=== PATIENT | male | born 1945 | race Caucasian/White ===

== ENCOUNTER 2017-04-01 12:44 | Inpatient (IN) | payer MEDICARE ==
[2017-04-01] VITALS (7 sets, daily range): BP systolic 199–244; BP diastolic 93–113; PULSE 68–84; RESP 14–20; TEMP 98–98.1; O2SAT 95–98
[~2017-04-01] VITALS: Ht 170.2 cm; Wt 80.0 kg
[~2017-04-01 12:44] MED LIST: IOHEXOL 350 MG/ML 10 ML VIAL (for RAD DIAG) IVCONTRAST ONE
[2017-04-01] MEDS ORDERED: MULTTAB67 PO (12:55)
[2017-04-01] MEDS ORDERED: SODIUM CHLORIDE 0.9% FLUSH 10 ML FLUSH IVF PRN (13:00)
[2017-04-01 13:30] LABS: AUTOMATED NEUTROPHIL # 2.8 TH/MM3 (1.8-7.7); BASOPHIL % 0.6 % (0.0-2.0); EOSINOPHIL # 0.1 TH/MM3 (0-0.4); EOSINOPHIL % 2.7 % (0.0-4.0); HEMATOCRIT 36.9 % (39.0-51.0); HEMO FLAGS DIFF FINAL; LYMPH % 36.4 % (9.0-44.0); MEAN CELL VOLUME 90.3 FL (80.0-100.0); MEAN CORPUSCULAR HGB CONC 35.4 % (32.0-36.0); MONO % 7.8 % (0.0-8.0); NEUT % 52.5 % (16.0-70.0); PLATELET COUNT 188 TH/MM3 (150-450); RED BLOOD COUNT 4.09 MIL/MM3 (4.50-5.90); RED CELL DISTRIBUTION WIDTH 12.4 % (11.6-17.2); WHITE BLOOD COUNT 5.4 TH/MM3 (4.0-11.0)
--- NOTE | 2017-04-01 13:33 | RADRPT ---
EXAM DATE/TIME: 04/01/2017 13:13 [facility] COMPARISON: No previous studies available for comparison. INDICATIONS : Altered mental status with confusion for two days. RADIATION DOSE: 56.35 CTDIvol (mGy) MEDICAL HISTORY : None SURGICAL HISTORY : None. ENCOUNTER: Initial ACUITY: 2 days PAIN SCALE: 8/10 LOCATION: Bilateral cranial TECHNIQUE: Multiple contiguous axial images were obtained of the head. Using automated exposure control and adj ustment of the mA and/or kV according to patient size, radiation dose was kept as low as reasonably a chievable to obtain optimal diagnostic quality images. DICOM format image data is available electro nically for review and comparison. FINDINGS: CEREBRUM: Bilateral hypodensities within the internal capsule and caudate nucleus suspicious for small lacunar infarcts. Left thalamic hypodensity likely old lacunar infarct The ventricles are mildly prominent fo r age. No evidence of midline shift, mass lesion, hemorrhage or acute infarction. No extra-axial fl uid collections are seen. POSTERIOR FOSSA: The cerebellum and brainstem are intact. The 4th ventricle is midline. The cerebellopontine angle i s unremarkable. EXTRACRANIAL: The visualized portion of the orbits is intact. SKULL: The calvaria is intact. No evidence of skull fracture. CONCLUSION: Bilateral hypodensities within the basal ganglia and internal capsule suspicious for infarcts. Defini te new edema or hemorrhage seen. Wilfrido Hernandez MD on April 01, 2017 at 13:31 Board Certified Radiologist. This report was verified electronically.
[2017-04-01 13:39] LABS: APTT (PATIENT) 25.4 SEC (24.3-30.1); PROTHROMBIN TIME - PATIENT 10.8 SEC (9.8-11.6)
[2017-04-01 13:49] LABS: ALT (GPT) 23 U/L (12-78); ANION GAP 8 MEQ/L (5-15); AST (GOT) 18 U/L (15-37); BLOOD UREA NITROGEN 15 MG/DL (7-18); CHLORIDE 101 MEQ/L (98-107); GLOMERULAR FILTRATION RATE 72 ML/MIN (>89); POTASSIUM 3.5 MEQ/L (3.5-5.1); SODIUM (NA) 136 MEQ/L (136-145)
[2017-04-01 13:53] LABS: ALKALINE PHOSPHATASE 100 U/L (45-117); CREATINE KINASE 107 U/L (39-308); TOTAL BILIRUBIN ADULT 1.2 MG/DL (0.2-1.0)
--- NOTE | 2017-04-01 14:02 | RADRPT ---
EXAM DATE/TIME: 04/01/2017 13:58 [facility] COMPARISON: No previous studies available for comparison. INDICATIONS : Lightheaded and dizzy. MEDICAL HISTORY : None. SURGICAL HISTORY : None. ENCOUNTER: Initial ACUITY: 1 day PAIN SCORE: 0/10 LOCATION: Bilateral chest FINDINGS: A single view of the chest demonstrates the lungs to be symmetrically aerated without evidence of mas s, infiltrate or effusion. The cardiomediastinal contours are unremarkable. Osseous structures are intact. CONCLUSION: Normal examination. Wilfrido Hernandez MD on April 01, 2017 at 14:00 Board Certified Radiologist. This report was verified electronically.
[2017-04-01] MEDS ORDERED: GLUCAGON 1 MG/ML VIAL OTHER PRN (15:30)
[2017-04-01] MEDS ORDERED: FLUMAZENIL 0.5 MG/5 ML VIAL IV PUSH PRN (15:30)
[2017-04-01] MEDS ORDERED: hydrALAZINE HCL 20 MG/ML VIAL IV PUSH ONE (15:30)
[2017-04-01] MEDS ORDERED: DEXTROSE 50% IN WATER 50 ML VIAL(D50) IV PUSH PRN (15:30)
[2017-04-01] MEDS ORDERED: SODIUM CHLORIDE 0.9% FLUSH 5 ML FLUSH IV FLUSH PRN (15:30)
[2017-04-01] MEDS ORDERED: LORazepam 2 MG/ML VIAL IV PUSH PRN ×4 (15:30)
[2017-04-01 15:51] LABS: BLOOD, URINE NEG (NEG); GLUCOSE,URINE NEG (NEG); KETONE, URINE NEG (NEG); MUCUS URINE FEW /lpf (OCC); NITRITE,URINE NEG (NEG); URINE COLOR YELLOW (YELLW/STRAW)
[2017-04-01 15:53] LABS: COMMENT (UR) CATH-CULT NOT IND; CULTURE IF INDICATED CATH CULTURE NOT IND
[2017-04-01] MEDS: LORazepam 1 MG TAB PO PRN (15:57)
[2017-04-01] MEDS ORDERED: SODIUM CHLOR 0.9% 1000 ML INJ 1,000 ML IV SCH (16:00)
[2017-04-01] MEDS ORDERED: niCARdipine INJ 25 MG in SODIUM CHLOR 0.9% 250 ML INJ 240 ML IV PRN (16:00)
[2017-04-01 16:21] LABS: TOTAL BILIRUBIN ADULT 1.2 MG/DL (0.2-1.0)
--- NOTE | 2017-04-01 16:44 | PD ---
HPI Chief Complaint: Neuro Symptoms/ Deficits Time Seen by Provider: 12:59 Travel History International Travel<30 days: No Contact w/Intl Traveler<30days: No Traveled to known affect area: No History of Present Illness HPI 72-year-old male with unknown past medical history as he has not seen a physician for many years, presents here with expressive aphasia starting last night. The patient denies any headache or neck pain. His daughter is at the bedside states that he started having slurring of his words and difficulty finding words starting last night. She states it persisted till this morning and she brought him in for evaluation. Patient is noted to have an elevated blood pressure. PFSH Past Medical History Medical History: Denies Significant Hx Tetanus Vaccination: Unknown Influenza Vaccination: No Social History Alcohol Use: Yes (5 BEERS 3 DAYS A WEEK) Tobacco Use: No Substance Use: No Allergies-Medications (Allergen,Severity, Reaction): Coded Allergies: No Known Allergies (Unverified , 04/01/17) Reported Meds & Prescriptions Reported Meds & Active Scripts Active Reported Multiple Vitamin 1 Tab 1 Tab PO DAILY Review of Systems Except as stated in HPI: all other systems reviewed are Neg General / Constitutional: No: Fever, Chills HENT: No: Headaches, Neck Pain Cardiovascular: No: Chest Pain or Discomfort, Palpitations Respiratory: No: Cough, Shortness of Breath Gastrointestinal: No: Nausea, Vomiting Genitourinary: No: Urgency, Frequency, Incontinence Musculoskeletal: No: Myalgias, Weakness Skin: No Rash Neurologic: Positive: Slurred Speech, Other (occulted finding words and confusion), No: Focal Abnormalities, Headache, Paresthesia, Sensory Disturbance Physical Exam Narrative GENERAL: Developed well-nourished male in no acute rest her distress. SKIN: Focused skin assessment warm/dry. HEAD: Atraumatic. Normocephalic. EYES: No scleral icterus. No injection or drainage. ENT: No nasal bleeding or discharge. Mucous membranes pink and moist. NECK: Trachea midline. Supple. CARDIOVASCULAR: Regular rate and rhythm. No murmur appreciated. RESPIRATORY: No accessory muscle use. Clear to auscultation. Breath sounds equal bilaterally. GASTROINTESTINAL: Abdomen soft, non-tender, nondistended. Hepatic and splenic margins not palpable. MUSCULOSKELETAL: No obvious deformities. No clubbing. No cyanosis. No edema. NEUROLOGICAL: Awake and confused finding words.. No obvious cranial nerve deficits. Motor grossly within normal limits. Slight slurred speech. Normal hsiy-by-[id number] on the right. Difficult with vxrt-bh-bpee on the left. Data Data Last Documented VS Vital Signs Date Time Temp Pulse Resp B/P (MAP) Pulse Ox O2 Delivery O2 Flow Rate FiO2 04/01/17 15:32 96 21 04/01/17 15:27 75 14 219/111 (147) 04/01/17 12:46 98.0 Orders Orders Electrocardiogram (04/01/17 12:59) Prothrombin Time / Inr (Pt) (04/01/17 12:59) Act Partial Throm Time (Ptt) (04/01/17 12:59) Complete Blood Count With Diff (04/01/17 12:59) Comprehensive Metabolic Panel (04/01/17 12:59) Creatine Kinase (Cpk) (04/01/17 12:59) Troponin I (04/01/17 12:59) Urinalysis - C+S If Indicated (04/01/17 12:59) Ct Brain W/O Iv Contrast(Rout) (04/01/17 12:59) Chest, Single Ap (04/01/17 12:59) Ecg Monitoring (04/01/17 12:59) Iv Access Insert/Monitor (04/01/17 12:59) Oximetry (04/01/17 12:59) Sodium Chloride 0.9% Flush (Ns Flush) (04/01/17 13:00) Hydralazine Inj (Apresoline Inj) (04/01/17 15:30) Drug Screen, Random Urine (04/01/17 15:22) Bilirubin Components (04/01/17 15:22) Thyroid Stimulating Hormone (04/01/17 15:22) Admit To Inpatient (04/01/17 ) Vital Signs (Adult) Q4H (04/01/17 15:22) Nih Stroke Scale - Nihss .On admission and discharge (04/01/17 15:22) Ot Request For Service (04/01/17 15:22) Consult Pt Eval & Treat (04/01/17 15:22) Speech Therapy Consult-Eval/Tx (04/01/17 15:22) Case Management Consult (04/01/17 ) Activity Bed Rest (04/01/17 15:22) Nursing Bedside Swallow Assess .ONCE (04/01/17 15:22) Scd Bilateral/Knee High GEORGE.QSHIFT (04/01/17 15:22) Hemoglobin (Hgb) A1c (04/01/17 15:22) Lipid Profile (04/02/17 06:00) Us Carotid Arteries Comp Bilat (04/01/17 ) Holter Monitor Recording (04/01/17 ) Mra Brain W/O Contrast (Cow) (04/01/17 ) Mri Brain W/O Contrast (04/01/17 ) Echo 2d Comp With Doppler (04/01/17 ) Resp Oxygen Bharathi C Titrat 1-4 L (04/01/17 ) ^ Hold Medication (04/01/17 15:22) Consult Neurology (04/01/17 ) Sodium Chloride 0.9% Flush (Ns Flush) (04/01/17 21:00) Sodium Chloride 0.9% Flush (Ns Flush) (04/01/17 15:30) Sodium Chlor 0.9% 1000 Ml Inj (Ns 1000 M (04/01/17 16:00) Nicardipine Inj (Cardene Inj) (04/01/17 16:00) Aspirin Chew (Aspirin Chew) (04/02/17 09:00) Bedside Glucose GEORGE.CSUGAR (04/01/17 15:22) ^ Discontinue Insulin Orders (04/01/17 15:22) Insulin Aspart Supplemtl Scale (Novolog (04/01/17 17:00) Dextrose 50% In Darya (Vial) Inj (D50w (Vi (04/01/17 15:30) Glucagon Inj (Glucagon Inj) (04/01/17 15:30) Consult Rehab Medicine (04/01/17 15:22) Typesetting Machine Tender / Telemetry GEORGE.Q8H (04/01/17 15:22) Consult Stroke Navigator (04/01/17 ) Scd Bilateral/Knee High GEORGE.BID (04/01/17 15:22) Inpatient Certification (04/01/17 ) Flumazenil Inj (Romazicon Inj) (04/01/17 15:30) Lorazepam (Ativan) (04/01/17 15:30) Lorazepam Inj (Ativan Inj) (04/01/17 15:30) Lorazepam (Ativan) (04/01/17 15:30) Lorazepam Inj (Ativan Inj) (04/01/17 15:30) Lorazepam Inj (Ativan Inj) (04/01/17 15:30) Lorazepam Inj (Ativan Inj) (04/01/17 15:30) Admit Order (Ed Use Only) (04/01/17 15:50) Labs Laboratory Tests Test 04/01/17 13:20 04/01/17 15:20 White Blood Count 5.4 TH/MM3 Red Blood Count 4.09 MIL/MM3 Hemoglobin 13.1 GM/DL Hematocrit 36.9 % Mean Corpuscular Volume 90.3 FL Mean Corpuscular Hemoglobin 32.0 PG Mean Corpuscular Hemoglobin Concent 35.4 % Red Cell Distribution Width 12.4 % Platelet Count 188 TH/MM3 Mean Platelet Volume 9.8 FL Neutrophils (%) (Auto) 52.5 % Lymphocytes (%) (Auto) 36.4 % Monocytes (%) (Auto) 7.8 % Eosinophils (%) (Auto) 2.7 % Basophils (%) (Auto) 0.6 % Neutrophils # (Auto) 2.8 TH/MM3 Lymphocytes # (Auto) 2.0 TH/MM3 Monocytes # (Auto) 0.4 TH/MM3 Eosinophils # (Auto) 0.1 TH/MM3 Basophils # (Auto) 0.0 TH/MM3 CBC Comment DIFF FINAL Differential Comment Prothrombin Time 10.8 SEC Prothromb Time International Ratio 1.0 RATIO Activated Partial Thromboplast Time 25.4 SEC Blood Urea Nitrogen 15 MG/DL Creatinine 1.02 MG/DL Random Glucose 127 MG/DL Total Protein 7.3 GM/DL Albumin 3.7 GM/DL Calcium Level 8.6 MG/DL Alkaline Phosphatase 100 U/L Aspartate Amino Transf (AST/SGOT) 18 U/L Alanine Aminotransferase (ALT/SGPT) 23 U/L Total Bilirubin 1.2 MG/DL Sodium Level 136 MEQ/L Potassium Level 3.5 MEQ/L Chloride Level 101 MEQ/L Carbon Dioxide Level 27.0 MEQ/L Anion Gap 8 MEQ/L Estimat Glomerular Filtration Rate 72 ML/MIN Direct Bilirubin 0.2 MG/DL Indirect Bilirubin 1.0 MG/DL Total Creatine Kinase 107 U/L Troponin I 0.13 NG/ML Thyroid Stimulating Hormone 3rd Gen 1.420 uIU/ML Urine Color YELLOW Urine Turbidity CLEAR Urine pH 7.0 Urine Specific [place] 1.009 Urine Protein TRACE mg/dL Urine Glucose (UA) NEG mg/dL Urine Ketones NEG mg/dL Urine Occult Blood NEG Urine Nitrite NEG Urine Bilirubin NEG Urine Urobilinogen LESS THAN 2.0 MG/DL Urine Leukocyte Esterase NEG Urine Mucus FEW /lpf Microscopic Urinalysis Comment CATH-CULT NOT IND Urine Opiates Screen NEG Urine Barbiturates Screen NEG Urine Amphetamines Screen NEG Urine Benzodiazepines Screen NEG Urine Cocaine Screen NEG Urine Cannabinoids Screen NEG MDM Medical Decision Making Medical Screen Exam Complete: Yes Emergency Medical Condition: Yes Differential Diagnosis CVA versus TIA versus hypertensive emergency versus metabolic derangement Narrative Course 72-year-old male with unknown medical history, presents here with expressive aphasia. The patient has no focal neural motor deficit. He does have difficulty with pmtd-[id number]-[id number] with his right heel to left gibson. Normal heel-to- gibson with the left heel to right gibson. Patient has what appears to be old infarcts noted on CT scan. His blood pressure was over 200 systolic. The patient's been given one dose of hydralazine 10 mg I V times one dose. He'll be admitted to the neuro floor under the service of Dr. Julien Beard, [facility]. Diagnosis Primary Impression: CVA (cerebral vascular accident) Additional Impression: Uncontrolled hypertension Admitting Information Admitting Physician Requests: Admit Thomas Ardon MD Apr 01, 2017 16:43
--- NOTE | 2017-04-01 17:00 | RADRPT ---
EXAM DATE/TIME: 04/01/2017 15:43 [facility] COMPARISON: No previous studies available for comparison. INDICATIONS : Stenosis. MEDICAL HISTORY : Hypercholesterolemia. ETOH abuse. SURGICAL HISTORY : Left achilles tendon repair. ENCOUNTER: Initial ACUITY: 1 day PAIN SCORE: 0/10 LOCATION: Right neck PEAK SYSTOLIC VELOCITIES (cm/sec): ICA/CCA RATIO: Right: 2.2 Left: 1.3 ICA: Right: 192 Left: 182 CCA: Right: 89 Left: 136 ECA: Right: 134 Left: 98 VERTEBRAL: Right: 40 antegrade Left: 100 antegrade Elevated flow velocities and ICA/CCA ratios have been found to correlate with increased degrees of vessel stenosis, calculated as percentage of diameter relative to a normal segment of distal ICA/CCA FINDINGS: RIGHT CAROTID: Partially calcified atheromatous plaque involving the proximal ICA. Luminal narrowing by grayscale an alysis is approximately 50%. Minimal spectral broadening involving the ICA waveform. LEFT CAROTID: Shadowing limits the grayscale analysis of the proximal ICA. There is atherosclerotic plaque seen wit h stenosis felt less than 50% by grayscale evaluation. Some spectral broadening seen involving the IC A waveform. VERTEBRAL ARTERIES: Antegrade flow is seen in both vertebral arteries. MISCELLANEOUS: None. CONCLUSION: 1. Partially calcified atheromatous plaque generating approximately 50% stenoses of the ICAs bilatera lly. 2. Antegrade flow involving both vertebral arteries. Morgan Liriano Jr., MD on April 01, 2017 at 16:48 Board Certified Radiologist. This report was verified electronically.
--- NOTE | 2017-04-01 17:26 | RADRPT ---
EXAM DATE/TIME: 04/01/2017 16:48 [facility] COMPARISON: CT BRAIN W/O CONTRAST, April 01, 2017, 13:13. INDICATIONS : Altered mental status. MEDICAL HISTORY : None. SURGICAL HISTORY : None. ENCOUNTER: Initial ACUITY: 1 day PAIN SCORE: 0/10 LOCATION: cranial TECHNIQUE: Multiplanar, multisequence MRI of the brain was performed without contrast. FINDINGS: CEREBRUM: The ventricles are normal for age. There is a elongated 1.3 x 0 point centimeter area of abnormal sig nal in the left basal ganglia suspicious for small lacunar stroke. No evidence of midline shift, or hemorrhage. No extraaxial fluid collections are seen. The pituitary gland and suprasellar cistern a re normal in configuration. WHITE MATTER: No significant signal abnormalities are seen in the white matter. POSTERIOR FOSSA: The cerebellum and brainstem are intact. The 4th ventricle is midline. The cerebellopontine angle is unremarkable. The cerebellar tonsils are normal in position. DIFFUSION IMAGING: Left lacunar infarct EXTRACRANIAL: The visualized portions of the orbits are unremarkable. Mild sinus disease in both maxillary sinuses CONCLUSION: 1.3 x 0.8 cm lacunar infarct between the internal capsule and the thalamus on the left. Otherwise mil d diffuse atrophy. Wilfrido Hernandez MD on April 01, 2017 at 17:21 Board Certified Radiologist. This report was verified electronically.
--- NOTE | 2017-04-01 17:31 | RADRPT ---
EXAM DATE/TIME: 04/01/2017 16:48 [facility] COMPARISON: No previous studies available for comparison. INDICATIONS : Altered mental status. MEDICAL HISTORY : None. SURGICAL HISTORY : None. ENCOUNTER: Initial ACUITY: 1 day PAIN SCORE: 0/10 LOCATION: cranial Please note a normal MRA of the brain does not entirely exclude the possibility of a small aneurysm, nor the possibility of distal intracranial vessel disease. TECHNIQUE: 3D time of flight MRA was performed. Source images, multiplanar STS MIP, and 3D volume MIP reconstru ctions were reviewed. FINDINGS: There is excellent visualization of the major intracranial arteries out to the second-order branch ve ssels. There is no evidence for aneurysm, vessel truncation or stenosis, and no evidence for vascula r malformation except that between the A1 and A2 segments there is also bifid appearance to the right anterior cerebral artery. The left vertebral artery is dominant and supplying the entire flow to the basilar artery. The middl e cerebral arteries are symmetric CONCLUSION: Normal examination without evidence of aneurysm or obvious stenosis. Wilfrido Hernandez MD on April 01, 2017 at 17:28 Board Certified Radiologist. This report was verified electronically.
--- NOTE | 2017-04-01 19:02 | HHI.HP ---
HPI Service [facility] Primary Care Physician No Primary Care Physician Admission Diagnosis CVA, uncontrolled hypertension, elevated troponin Diagnoses: Travel History International Travel<30 Days: No Contact w/Intl Traveler <30 Da: No Traveled to Known Affected Are: No History of Present Illness 72-year-old male with no known past medical history who presents with onset of aphasia and confusion beginning yesterday per daughter. Daughter is not at bedside at the time of examination. Patient denies feeling any different. Says he feels like he is talking without any difficulty, says he feels like himself. Denies any chest pain, shortness of breath, nausea, vomiting. He does report drinking about 6 beers per day. Denies any history of withdrawal. Review of Systems Except as stated in HPI: all other systems reviewed are Neg Past Family Social History Past Medical History Patient denies any past medical history Past Surgical History Patient denies any past surgical history. Reported Medications Patient denies taking any home medications Allergies: Coded Allergies: No Known Allergies (Unverified , 04/01/17) Family History Patient is not certain of his family history. It sounds as if he is saying his mother of a stroke in old age. Social History Patient quit smoking many years ago. Patient reports drinking 6 pack of beer per day. Denies any history withdrawal. Patient denies any illicit drugs. Physical Exam Vital Signs Vital Signs Date Time Temp Pulse Resp B/P (MAP) Pulse Ox O2 Delivery O2 Flow Rate FiO2 04/01/17 18:30 04/01/17 17:28 73 16 204/100 (134) 96 04/01/17 16:30 75 16 202/98 (132) 96 04/01/17 15:32 96 21 04/01/17 15:27 75 14 219/111 (147) 95 04/01/17 12:47 228/107 (147) 04/01/17 12:46 98.0 84 16 244/113 (156) 95 Physical Exam GENERAL: This is a well-nourished, well-developed patient, who appears somewhat confused. He is alert, oriented to place, person, year, not to month. SKIN: No rashes, ecchymoses or lesions. Cool and dry. HEAD: Atraumatic. Normocephalic. No temporal or scalp tenderness. EYES: Pupils equal round and reactive. Extraocular motions intact. No scleral icterus. No injection or drainage. ENT: Nose without bleeding, purulent drainage or septal hematoma. Throat without erythema, tonsillar hypertrophy or exudate. Uvula midline. Airway patent. NECK: Trachea midline. No JVD or lymphadenopathy. Supple, nontender, no meningeal signs. CARDIOVASCULAR: Regular rate and rhythm without murmurs, gallops, or rubs. RESPIRATORY: Clear to auscultation. Breath sounds equal bilaterally. No wheezes , rales, or rhonchi. GASTROINTESTINAL: Abdomen soft, non-tender, nondistended. No hepato-splenomegaly , or palpable masses. No guarding. MUSCULOSKELETAL: Extremities without clubbing, cyanosis, or edema. No joint tenderness, effusion, or edema noted. No calf tenderness. Negative Homans sign bilaterally. NEUROLOGICAL: Awake and alert. Cranial nerves II through XII intact. Patient does have mild ataxia, as well as moderate aphasia. Five out of 5 muscle strength in all muscle groups. . Laboratory Laboratory Tests Test 04/01/17 13:20 04/01/17 15:20 White Blood Count 5.4 Red Blood Count 4.09 Hemoglobin 13.1 Hematocrit 36.9 Mean Corpuscular Volume 90.3 Mean Corpuscular Hemoglobin 32.0 Mean Corpuscular Hemoglobin Concent 35.4 Red Cell Distribution Width 12.4 Platelet Count 188 Mean Platelet Volume 9.8 Neutrophils (%) (Auto) 52.5 Lymphocytes (%) (Auto) 36.4 Monocytes (%) (Auto) 7.8 Eosinophils (%) (Auto) 2.7 Basophils (%) (Auto) 0.6 Neutrophils # (Auto) 2.8 Lymphocytes # (Auto) 2.0 Monocytes # (Auto) 0.4 Eosinophils # (Auto) 0.1 Basophils # (Auto) 0.0 CBC Comment DIFF FINAL Differential Comment Prothrombin Time 10.8 Prothromb Time International Ratio 1.0 Activated Partial Thromboplast Time 25.4 Blood Urea Nitrogen 15 Creatinine 1.02 Random Glucose 127 Total Protein 7.3 Albumin 3.7 Calcium Level 8.6 Alkaline Phosphatase 100 Aspartate Amino Transf (AST/SGOT) 18 Alanine Aminotransferase (ALT/SGPT) 23 Total Bilirubin 1.2 Sodium Level 136 Potassium Level 3.5 Chloride Level 101 Carbon Dioxide Level 27.0 Anion Gap 8 Estimat Glomerular Filtration Rate 72 Direct Bilirubin 0.2 Indirect Bilirubin 1.0 Total Creatine Kinase 107 Troponin I 0.13 Thyroid Stimulating Hormone 3rd Gen 1.420 Urine Color YELLOW Urine Turbidity CLEAR Urine pH 7.0 Urine Specific [place] 1.009 Urine Protein TRACE Urine Glucose (UA) NEG Urine Ketones NEG Urine Occult Blood NEG Urine Nitrite NEG Urine Bilirubin NEG Urine Urobilinogen LESS THAN 2.0 Urine Leukocyte Esterase NEG Urine Mucus FEW Microscopic Urinalysis Comment CATH-CULT NOT IND Urine Opiates Screen NEG Urine Barbiturates Screen NEG Urine Amphetamines Screen NEG Urine Benzodiazepines Screen NEG Urine Cocaine Screen NEG Urine Cannabinoids Screen NEG Result Diagram: 04/01/17 1320 04/01/17 1320 Caprinsheila VTE Risk Assessment Caprini VTE Risk Assessment: Mod/High Risk (score >= 2) Caprini Risk Assessment Model Point Value = 1 Point Value = 2 Point Value = 3 Point Value = 5 Age 41-60 Minor surgery BMI > 25 kg/m2 Swollen legs Varicose veins or History of unexplained or recurrent spontaneous Oral contraceptives or hormone replacement Sepsis (< 1 month) Serious lung disease, including pneumonia (< 1 month) Abnormal pulmonary function Acute myocardial infarction Congestive heart failure (< 1 month) History of inflammatory bowel disease Medical patient at bed rest Age 61-74 Arthroscopic surgery Major open surgery (> 45 min) Laparoscopic surgery (> 45 min) Malignancy Confined to bed (> 72 hours) Immobilizing plaster cast Central venous access Age >= 75 History of VTE Family history of VTE Factor V Leiden Prothrombin [id number] Lupus anticoagulant Anticardiolipin antibodies Elevated serum homocysteine Heparin-induced thrombocytopenia Other congenital or acquired thrombophilia Stroke (< 1 month) Elective arthroplasty Hip, pelvis, or leg fracture Acute spinal cord injury (< 1 month) Prophylaxis Regimen Total Risk Factor Score Risk Level Prophylaxis Regimen 0-1 Low Early ambulation 2 Moderate Order ONE of the following: *Sequential Compression Device (SCD) *Heparin 5000 units SQ BID 3-4 Higher Order ONE of the following medications: *Heparin 5000 units SQ TID *Enoxaparin/Lovenox 40 mg SQ daily (WT < 150 kg, CrCl > 30 mL/min) *Enoxaparin/Lovenox 30 mg SQ daily (WT < 150 kg, CrCl > 10-29 mL/min) *Enoxaparin/Lovenox 30 mg SQ BID (WT < 150 kg, CrCl > 30 mL/min) AND/OR *Sequential Compression Device (SCD) 5 or more Highest Order ONE of the following medications: *Heparin 5000 units SQ TID (Preferred with Epidurals) *Enoxaparin/Lovenox 40 mg SQ daily (WT < 150 kg, CrCl > 30 mL/min) *Enoxaparin/Lovenox 30 mg SQ daily (WT < 150 kg, CrCl > 10-29 mL/min) *Enoxaparin/Lovenox 30 mg SQ BID (WT < 150 kg, CrCl > 30 mL/min) AND *Sequential Compression Device (SCD) Assessment and Plan Assessment and Plan //Acute lacunar infarct. -Likely secondary to accelerated hypertension. -We'll try to get blood pressure below 200 systolic. -Start aspirin -Neuro checks. Consult neurology. //Accelerated hypertension -Status post hydralazine, Ativan with CIWA protocol. -Expect to improve further with scheduled benzodiazepine. -Started on nicardipine drip. //Chronic alcoholism. -6 pack per day history. -Order CIWA protocol. Start Librium taper. //Indirect hyperbilirubinemia secondary to Gilbert syndrome. //Troponin elevation 0.13. Patient without chest pain. EKG without signs of ischemia. Due to patient being poor historian, We'll trend troponins. Discussed Condition With Patient, nurse, ED physician. Physician Certification 2 Midnight Certification Type: Admission for Inpatient Services Order for Inpatient Services The services are ordered in accordance with Medicare regulations or non- Medicare payer requirements, as applicable. In the case of services not specified as inpatient-only, they are appropriately provided as inpatient services in accordance with the 2-midnight benchmark. Estimated LOS (days): 2 days is the estimated time the patient will need to remain in the hospital, assuming treatment plan goals are met and no additional complications. Post-Hospital Plan: Home Julien Beard MD Apr 01, 2017 19:02
[2017-04-01] MEDS: INSULIN ASPART SUPPLEMENTAL SCALE SQ SCH (20:11)
[2017-04-01] MEDS: SODIUM CHLORIDE 0.9% FLUSH 5 ML FLUSH IV FLUSH SCH (21:00)
[2017-04-01] MEDS: LORazepam 2 MG TAB PO PRN (21:27)
[2017-04-01] MEDS: hydrALAZINE HCL 25 MG TAB PO SCH (21:27)
[2017-04-01 21:51] LABS: HEMOGLOBIN A1a 0.7 %; HEMOGLOBIN A1b 0.8 %; HEMOGLOBIN Ao 85.3 %; HEMOGLOBIN F 0.9 %; HEMOGLOBIN LA1C 2.2 %; HEMOGLOBIN P3 3.8 %
[2017-04-02] VITALS (7 sets, daily range): BP systolic 160–198; BP diastolic 75–93; PULSE 63–85; RESP 20; TEMP 97.1–98.5; O2SAT 93–97
[2017-04-02] MEDS: LORazepam 1 MG TAB PO PRN ×2 (06:29→18:15)
[2017-04-02] MEDS: hydrALAZINE HCL 25 MG TAB PO SCH ×3 (06:29→21:27)
[2017-04-02] MEDS: INSULIN ASPART SUPPLEMENTAL SCALE SQ SCH ×4 (08:00→21:00)
[2017-04-02 08:34] LABS: HDL CHOLESTEROL 41.4 MG/DL (40.0-60.0)
[2017-04-02] MEDS: SODIUM CHLORIDE 0.9% FLUSH 5 ML FLUSH IV FLUSH SCH ×2 (09:00→21:00)
[2017-04-02] MEDS ORDERED: ASPIRIN 81 MG CHEW TAB PO SCH (09:00)
[2017-04-02] MEDS: SODIUM CHLOR 0.9% 1000 ML INJ 1,000 ML IV SCH (12:30)
[2017-04-02] MEDS ORDERED: DEXTROSE 50% IN WATER 50 ML VIAL(D50) IV PUSH PRN (12:30)
[2017-04-02] MEDS ORDERED: GLUCAGON 1 MG/ML VIAL OTHER PRN (12:30)
[2017-04-02] MEDS ORDERED: SODIUM CHLORIDE 0.9% FLUSH 5 ML FLUSH IV FLUSH PRN (12:30)
[2017-04-02] MEDS: ASPIRIN 325 MG TAB PO SCH (13:26)
[2017-04-02] MEDS ORDERED: LABETALOL HCL 100 MG/20 ML VIAL IV PUSH PRN (13:30)
--- NOTE | 2017-04-02 13:33 | HHI.PR ---
Subjective Remarks The patient was resting comfortably in bed. He was not sure why he was in the hospital. His daughters were at the bedside and very concerned. They stated that the patient does not look after himself and does not see doctors. They state he drinks a lot. The patient denies any weakness or numbness. Discussed with nursing. Objective Vitals Vital Signs Date Time Temp Pulse Resp B/P (MAP) Pulse Ox O2 Delivery O2 Flow Rate FiO2 04/02/17 12:00 98.5 74 20 198/93 (128) 96 04/02/17 08:15 21 04/02/17 08:00 98.0 67 20 184/82 (116) 96 04/02/17 08:00 85 04/02/17 04:00 97.1 63 20 97 04/02/17 00:00 97.1 68 20 160/75 (103) 93 04/01/17 20:00 68 04/01/17 20:00 98.1 74 20 199/93 (128) 98 04/01/17 18:30 04/01/17 17:28 73 16 204/100 (134) 96 04/01/17 16:30 75 16 202/98 (132) 96 04/01/17 15:32 96 21 04/01/17 15:27 75 14 219/111 (147) 95 I/O 04/01/17 04/01/17 04/01/17 04/02/17 04/02/17 04/02/17 07:00 15:00 23:00 07:00 15:00 23:00 Intake Total 640 ml 120 ml Output Total 300 ml Balance 640 ml -180 ml Intake Oral 120 ml IV Total 640 ml Output Urine Total 300 ml # Voids 1 Result Diagram: 04/01/17 1320 04/01/17 1320 Imaging Last Impressions Head CT 04/01/17 1259 Signed Impressions: Service Date/Time: Saturday, April 01, 2017 13:13 - CONCLUSION: Bilateral hypodensities within the basal ganglia and internal capsule suspicious for infarcts. Definite new edema or hemorrhage seen. Wilfrido Hernandez MD Chest X-Ray 04/01/17 1259 Signed Impressions: Service Date/Time: Saturday, April 01, 2017 13:58 - CONCLUSION: Normal examination. Wilfrido Hernandez MD Head Magnetic Resonance Angiography 04/01/17 0000 Signed Impressions: Service Date/Time: Saturday, April 01, 2017 16:48 - CONCLUSION: Normal examination without evidence of aneurysm or obvious stenosis. Wilfrido Hernandez MD Carotid Artery Ultrasound 04/01/17 0000 Signed Impressions: Service Date/Time: Saturday, April 01, 2017 15:43 - CONCLUSION: 1. Partially calcified atheromatous plaque generating approximately 50%% stenoses of the ICAs bilaterally. 2. Antegrade flow involving both vertebral arteries. Morgan Liriano Jr., MD Brain MRI 04/01/17 0000 Signed Impressions: Service Date/Time: Saturday, April 01, 2017 16:48 - CONCLUSION: 1.3 x 0.8 cm lacunar infarct between the internal capsule and the thalamus on the left. Otherwise mild diffuse atrophy. Wilfrido Hernandez MD Objective Remarks GENERAL: Resting comfortably. SKIN: No rashes, ecchymoses or lesions. Cool and dry. HEAD: Atraumatic. Normocephalic. No temporal or scalp tenderness. EYES: Pupils equal round and reactive. Extraocular motions intact. No scleral icterus. No injection or drainage. ENT: Nose without bleeding, purulent drainage or septal hematoma. Throat without erythema, tonsillar hypertrophy or exudate. Uvula midline. Airway patent. NECK: Trachea midline. No JVD or lymphadenopathy. Supple, nontender, no meningeal signs. CARDIOVASCULAR: Regular rate and rhythm without murmurs, gallops, or rubs. RESPIRATORY: Clear to auscultation. Breath sounds equal bilaterally. No wheezes , rales, or rhonchi. GASTROINTESTINAL: Abdomen soft, non-tender, nondistended. No hepato-splenomegaly , or palpable masses. No guarding. MUSCULOSKELETAL: Extremities without clubbing, cyanosis, or edema. No joint tenderness, effusion, or edema noted. NEUROLOGICAL: Awake and alert. Cranial nerves II through XII intact. Patient does have aphasia. Five out of 5 muscle strength in all muscle groups. Medications and IVs Current Medications Medications (Trade) Dose Ordered Sig/Saad Route Start Time Stop Time Status Last Admin (NS Flush) 2 ml BID IV FLUSH 04/01/17 21:00 04/02/17 09:00 (NS Flush) 2 ml UNSCH PRN IV FLUSH 04/01/17 15:30 Nicardipine HCl 25 mg/Sodium Chloride 250 ml @ 50 mls/hr TITRATE PRN IV 04/01/17 16:00 (NovoLOG SUPPLEMENTAL SCALE) 1 ACHS SQ 04/01/17 17:00 (D50w (Vial) Inj) 50 ml UNSCH PRN IV PUSH 04/01/17 15:30 (Glucagon Inj) 1 mg UNSCH PRN OTHER 04/01/17 15:30 (Romazicon Inj) 0.2 mg Q1M PRN IV PUSH 04/01/17 15:30 (Ativan) 1 mg Q4H PRN PO 04/01/17 15:30 04/02/17 06:29 (Ativan Inj) 1 mg Q4H PRN IV PUSH 04/01/17 15:30 (Ativan) 2 mg Q2H PRN PO 04/01/17 15:30 04/01/17 21:27 (Ativan Inj) 2 mg Q2H PRN IV PUSH 04/01/17 15:30 (Ativan Inj) 2 mg Q1H PRN IV PUSH 04/01/17 15:30 (Ativan Inj) 2 mg Q15M PRN IV PUSH 04/01/17 15:30 (Librium) 10 mg TID PO 04/02/17 09:00 04/02/17 13:26 (Apresoline) 25 mg Q8HR PO 04/01/17 22:00 04/02/17 13:26 Sodium Chloride 1,000 ml @ 70 mls/hr [id number] IV 04/02/17 12:30 04/02/17 12:30 (Aspirin) 325 mg DAILY PO 04/02/17 12:30 04/02/17 13:26 (Lipitor) 10 mg HS PO 04/02/17 21:00 (Trandate Inj) 5 mg Q2H PRN IV PUSH 04/02/17 13:30 (Vasotec Inj) 1.25 mg Q6H PRN IV PUSH 04/02/17 14:00 A/P Assessment and Plan Acute lacunar infarct Likely secondary to accelerated hypertension. - We'll try to get blood pressure below 200 systolic. - Start aspirin. Continue statin. - PT/ OT/ ST. - Neuro checks. - Consult neurology, stroke navigator, rehab medicine. - bed rest with IVFs. - echo pending. Accelerated hypertension Blood pressure still elevated. - keep SBP < 200. On hydralazine. Vasotec as needed. Chronic alcoholism. 6 pack per day history. - CIWA protocol. Start Librium taper. Indirect hyperbilirubinemia Secondary to Gilbert syndrome. - monitor as needed. Troponin elevation Peaked at 0.14. Patient without chest pain. EKG without signs of ischemia. Likely demand ischemia s/t CVA. - telemetry. - continue ASA. PPx: Heparin Discharge Planning Awaiting neuro evGiovanny Sands DO Apr 02, 2017 13:33
[2017-04-02] MEDS ORDERED: ENALAPRILAT 1.25 MG/ML VIAL IV PUSH PRN (14:00)
--- NOTE | 2017-04-02 14:33 | MB ---
cc: VELVET MONTERO M.D. DATE OF CONSULTATION: 04/02/2017. REASON FOR CONSULTATION: Stroke. HISTORY OF PRESENT ILLNESS: Mr. Bryant is a very nice 72-year-old man previously healthy who developed acute onset of difficulty getting words out and confusion beginning on 03/31. He apparently had no focal weakness. He was brought to the emergency room and was found to have a stroke on MRI scan involving the left thalamus, a 1.3 x 0.8 cm lacunar infarction in the thalamus and internal capsule on the left side. He has no prior history of stroke or TIA. PERSONAL HISTORY: Otherwise unremarkable according to the chart. ALLERGIES: NONE KNOWN. MEDICATIONS AT HOME: None. NEUROLOGIC EXAMINATION: VITAL SIGNS: Blood pressure is 198/93, pulse 74, respirations 20, temperature 98 degrees. HIGHER CORTICAL FUNCTIONS: He is alert. He is moderately aphasic. He has some difficulty getting words out. He can repeat simple phrases however. He follows commands. CRANIAL NERVES: Cranial nerves intact. MOTOR: On motor exam, he does seem to have mild weakness in the right arm and right leg rated at 4/5 proximally and distally with normal strength on the left. He has a mild pronator drift right upper extremity with diminished fine motor skills right hand. REFLEXES: 2+ symmetric in the upper and lower extremities. There is no Babinski sign present. IMAGING STUDIES: CT scan of the brain is reviewed showing old infarctions in the bilateral basal ganglia. No hemorrhage. MRI of the brain shows a diffusion abnormality in the left internal capsule and thalamus consistent with a subacute stroke. MRA brain normal. Carotid ultrasound shows partially calcified atheromatous plaque with bilateral stenosis at 50% in the ICA bilaterally. EKGS: EKG: There is normal sinus rhythm. LABORATORY DATA: White count 5.4, hemoglobin 13.1, hematocrit 36.9%, platelet count 188,000. Sodium is 136, potassium 3.5, chloride 101, CO2 27, the BUN is 15, creatinine 1.02, GFR 72, glucose 127, AST 18, ALT is 23, LDL 127, cholesterol 195, HDL 41, triglycerides 135. Tox screen is negative. Urinalysis: pH is 7, specific gravity is 1.009. IMPRESSION: Left hemisphere stroke involving the thalamus and internal capsule. RECOMMENDATIONS: 1. Aspirin 325 milligrams daily. 2. Also recommend starting a statin because of the high LDL. 3. Will check echocardiogram to rule out cardioembolic source. 4. Also monitor cardiac telemetry. 5. Rule out atrial fibrillation. 6. Allow permissive hypertension up to 210/110 for now. 7. If no etiology of the stroke is identified, consider long-term quality assurance monitor final with a LINQ recorder to rule out atrial fibrillation as an outpatient. MD DOC Webb/TIARA /12:32 PM /2:23 PM
--- NOTE | 2017-04-02 14:37 | EKG ---
Date Performed: 04/02/2017 Time Performed: 01:33:16 PTAGE: 72 years EKG: Sinus rhythm . Possible anterior infarct - age undetermined Possible inferior infarct - age undetermined Lateral T wave changes may be due to myocardial ischemia Abnormal ECG PREVIOUS TRACING : 04/01/2017 20.16 Compared to the previous tracing, lateral ST/T wave changes are more prominent DOCTOR: Arturo Connor Interpretating Date/Time 04/02/2017 14:36:13
--- NOTE | 2017-04-02 15:06 | EKG ---
Date Performed: 04/01/2017 Time Performed: 20:16:46 PTAGE: 72 years EKG: Sinus rhythm INTRAVENTRICULAR CONDUCTION DELAY ABNORMAL ECG PREVIOUS TRACING : 04/01/2017 13.30 Compared to prior tracing no significant change DOCTOR: Arturo Connor Interpretating Date/Time 04/02/2017 15:04:47
[2017-04-02] MEDS ORDERED: INSULIN ASPART SUPPLEMENTAL SCALE SQ SCH (17:00)
--- NOTE | 2017-04-02 17:50 | EKG ---
Date Performed: 04/01/2017 Time Performed: 13:30:27 PTAGE: 72 years EKG: Sinus rhythm NONSPECIFIC T-WAVE ABNORMALITY BORDERLINE ECG PREVIOUS TRACING : 04/01/2017 13.29 Compared to prior tracing no significant change DOCTOR: Arturo Connor Interpretating Date/Time 04/05/2017 06:51:18
[2017-04-02] MEDS ORDERED: SODIUM CHLORIDE 0.9% FLUSH 5 ML FLUSH IV FLUSH SCH (21:00)
[2017-04-02] MEDS: ATORVASTATIN 10 MG TAB PO SCH (21:27)
[2017-04-02] MEDS: LORazepam 2 MG TAB PO PRN (21:28)
[2017-04-03] VITALS: BP 142/70; PULSE 65; RESP 19; TEMP 98.1; O2SAT 96
[2017-04-03] MEDS: SODIUM CHLOR 0.9% 1000 ML INJ 1,000 ML IV SCH ×2 (00:29→20:40)
[2017-04-03] MEDS: LORazepam 1 MG TAB PO PRN ×2 (03:22→09:11)
[2017-04-03 04:00] VITALS: BP 154/78; PULSE 66; RESP 18; TEMP 98; O2SAT 93
[2017-04-03] MEDS: hydrALAZINE HCL 25 MG TAB PO SCH (05:08)
[2017-04-03 07:30] LABS: HEMATOCRIT 39.8 % (39.0-51.0); MEAN CELL VOLUME 92.6 FL (80.0-100.0); MEAN CORPUSCULAR HEMOGLOBIN 31.2 PG (27.0-34.0); MEAN CORPUSCULAR HGB CONC 33.7 % (32.0-36.0); PLATELET COUNT 154 TH/MM3 (150-450); RED CELL DISTRIBUTION WIDTH 12.4 % (11.6-17.2); REVIEW FLAG FINAL; WHITE BLOOD COUNT 6.3 TH/MM3 (4.0-11.0)
[2017-04-03 08:00] VITALS: BP 173/79; PULSE 67; PULSE 74; RESP 20; TEMP 97.7; O2SAT 98
[2017-04-03] MEDS: INSULIN ASPART SUPPLEMENTAL SCALE SQ SCH ×2 (08:00→12:00)
[2017-04-03 08:20] LABS: BICARBONATE 24.2 MEQ/L (21.0-32.0); MAGNESIUM 2.1 MG/DL (1.5-2.5); POTASSIUM 3.5 MEQ/L (3.5-5.1)
[2017-04-03] MEDS: SODIUM CHLORIDE 0.9% FLUSH 5 ML FLUSH IV FLUSH SCH ×2 (09:00→20:39)
[2017-04-03] MEDS: ASPIRIN 325 MG TAB PO SCH (09:12)
[2017-04-03 12:00] VITALS: BP 169/87; PULSE 82; RESP 20; TEMP 97.4; O2SAT 95
[2017-04-03] MEDS ORDERED: POTASSIUM CHLORIDE 25 MEQ EFFERVESCENT TAB PO ONE (14:00)
[2017-04-03] MEDS ORDERED: amLODIPine BESYLATE 5 MG TAB PO SCH (14:00)
--- NOTE | 2017-04-03 14:02 | HHI.PR ---
Review/Management Diagnosis left thalamic cva--exam stable Plan continue aspirin and statin follow up echo monitor cardiac tele--r/o afib Diagnosis/Plan: Subjective Subjective Comments No acute events reported Active Medications Current Medications Medications (Trade) Dose Ordered Sig/Saad Route Start Time Stop Time Status Last Admin (NS Flush) 2 ml BID IV FLUSH 04/01/17 21:00 04/03/17 09:00 (NS Flush) 2 ml UNSCH PRN IV FLUSH 04/01/17 15:30 (NovoLOG SUPPLEMENTAL SCALE) 1 ACHS SQ 04/01/17 17:00 (D50w (Vial) Inj) 50 ml UNSCH PRN IV PUSH 04/01/17 15:30 (Glucagon Inj) 1 mg UNSCH PRN OTHER 04/01/17 15:30 (Romazicon Inj) 0.2 mg Q1M PRN IV PUSH 04/01/17 15:30 (Ativan) 1 mg Q4H PRN PO 04/01/17 15:30 04/03/17 09:11 (Ativan Inj) 1 mg Q4H PRN IV PUSH 04/01/17 15:30 (Ativan) 2 mg Q2H PRN PO 04/01/17 15:30 04/02/17 21:28 (Ativan Inj) 2 mg Q2H PRN IV PUSH 04/01/17 15:30 (Ativan Inj) 2 mg Q1H PRN IV PUSH 04/01/17 15:30 (Ativan Inj) 2 mg Q15M PRN IV PUSH 04/01/17 15:30 (Librium) 10 mg TID PO 04/02/17 09:00 04/03/17 09:11 Sodium Chloride 1,000 ml @ 70 mls/hr [id number] IV 04/02/17 12:30 04/03/17 00:29 (Aspirin) 325 mg DAILY PO 04/02/17 12:30 04/03/17 09:12 (Lipitor) 10 mg HS PO 04/02/17 21:00 04/02/17 21:27 (Trandate Inj) 5 mg Q2H PRN IV PUSH 04/02/17 13:30 (Vasotec Inj) 1.25 mg Q6H PRN IV PUSH 04/02/17 14:00 (K-Lyte Cl Eff) 50 meq ONCE ONCE PO 04/03/17 14:00 04/03/17 14:01 (Norvasc) 5 mg DAILY PO 04/03/17 14:00 Allergies Allergies Coded Allergies No Known Allergies (Mxylsipvqt15/24/17) Exam I&O / VS 04/03/17 04/03/17 04/04/17 15:00 23:00 07:00 # Voids 1 # Bowel Movements 1 Vital Signs Date Time Temp Pulse Resp B/P (MAP) Pulse Ox O2 Delivery O2 Flow Rate FiO2 04/03/17 12:00 97.4 82 20 169/87 (114) 95 04/03/17 08:00 97.7 67 20 173/79 (110) 98 04/03/17 04:00 98.0 66 18 154/78 (103) 93 04/03/17 00:00 98.1 65 19 142/70 (94) 96 04/02/17 20:00 Room Air 04/02/17 20:00 75 04/02/17 20:00 97.7 66 20 168/84 (112) 94 04/02/17 17:43 96 21 04/02/17 16:00 97.7 81 20 176/80 (112) 96 Exam Comments lethargic, but arouses easily Has expressive aphasia with intact comprehension CN intact MOTOR 4+/5 RUE and RLE. 5/5 LUE and LLE Objective Micro and Labs Laboratory Tests Test 04/03/17 06:55 White Blood Count 6.3 Red Blood Count 4.30 Hemoglobin 13.4 Hematocrit 39.8 Mean Corpuscular Volume 92.6 Mean Corpuscular Hemoglobin 31.2 Mean Corpuscular Hemoglobin Concent 33.7 Red Cell Distribution Width 12.4 Platelet Count 154 Mean Platelet Volume 10.1 Blood Urea Nitrogen 10 Creatinine 0.92 Random Glucose 97 Calcium Level 8.4 Magnesium Level 2.1 Sodium Level 139 Potassium Level 3.5 Chloride Level 107 Carbon Dioxide Level 24.2 Anion Gap 8 Estimat Glomerular Filtration Rate 81 Lefty Robles PhD MD Apr 03, 2017 14:02
--- NOTE | 2017-04-03 14:44 | HHI.PR ---
Subjective Remarks The patient was resting comfortably in bed. He said he was still having difficulty speaking. He denies any chest pain, shortness of breath or palpitations. Discussed with nursing. Objective Vitals Vital Signs Date Time Temp Pulse Resp B/P (MAP) Pulse Ox O2 Delivery O2 Flow Rate FiO2 04/03/17 12:00 97.4 82 20 169/87 (114) 95 04/03/17 08:00 97.7 67 20 173/79 (110) 98 04/03/17 04:00 98.0 66 18 154/78 (103) 93 04/03/17 00:00 98.1 65 19 142/70 (94) 96 04/02/17 20:00 Room Air 04/02/17 20:00 75 04/02/17 20:00 97.7 66 20 168/84 (112) 94 04/02/17 17:43 96 21 04/02/17 16:00 97.7 81 20 176/80 (112) 96 I/O 04/02/17 04/02/17 04/02/17 04/03/17 04/03/17 04/03/17 07:00 15:00 23:00 07:00 15:00 23:00 Intake Total 120 ml 460 ml 1737 ml Output Total 300 ml 300 ml Balance -180 ml 460 ml -300 ml 1737 ml Intake Oral 120 ml 460 ml 440 ml IV Total 1297 ml Output Urine Total 300 ml 300 ml # Voids 1 4 1 # Bowel Movements 0 1 Result Diagram: 04/03/17 0655 04/03/17 0655 Imaging Last Impressions Head CT 04/01/17 1259 Signed Impressions: Service Date/Time: Saturday, April 01, 2017 13:13 - CONCLUSION: Bilateral hypodensities within the basal ganglia and internal capsule suspicious for infarcts. Definite new edema or hemorrhage seen. Wilfrido Hernandez MD Chest X-Ray 04/01/17 1259 Signed Impressions: Service Date/Time: Saturday, April 01, 2017 13:58 - CONCLUSION: Normal examination. Wilfrido Hernandez MD Head Magnetic Resonance Angiography 04/01/17 0000 Signed Impressions: Service Date/Time: Saturday, April 01, 2017 16:48 - CONCLUSION: Normal examination without evidence of aneurysm or obvious stenosis. Wilfrido Hernandez MD Carotid Artery Ultrasound 04/01/17 0000 Signed Impressions: Service Date/Time: Saturday, April 01, 2017 15:43 - CONCLUSION: 1. Partially calcified atheromatous plaque generating approximately 50%% stenoses of the ICAs bilaterally. 2. Antegrade flow involving both vertebral arteries. Morgan Liriano Jr., MD Brain MRI 04/01/17 0000 Signed Impressions: Service Date/Time: Saturday, April 01, 2017 16:48 - CONCLUSION: 1.3 x 0.8 cm lacunar infarct between the internal capsule and the thalamus on the left. Otherwise mild diffuse atrophy. Wilfrido Hernandez MD Objective Remarks GENERAL: Resting comfortably. SKIN: No rashes, ecchymoses or lesions. Cool and dry. HEAD: Atraumatic. Normocephalic. No temporal or scalp tenderness. EYES: Pupils equal round and reactive. Extraocular motions intact. No scleral icterus. No injection or drainage. ENT: Nose without bleeding, purulent drainage or septal hematoma. Throat without erythema, tonsillar hypertrophy or exudate. Uvula midline. Airway patent. NECK: Trachea midline. No JVD or lymphadenopathy. Supple, nontender, no meningeal signs. CARDIOVASCULAR: Regular rate and rhythm without murmurs, gallops, or rubs. RESPIRATORY: Clear to auscultation. Breath sounds equal bilaterally. No wheezes , rales, or rhonchi. GASTROINTESTINAL: Abdomen soft, non-tender, nondistended. No hepato-splenomegaly , or palpable masses. No guarding. MUSCULOSKELETAL: Extremities without clubbing, cyanosis, or edema. No joint tenderness, effusion, or edema noted. NEUROLOGICAL: Awake and alert. Cranial nerves II through XII intact. Patient does have aphasia. Five out of 5 muscle strength in all muscle groups. Improved [id number] test. PSYCH: Calm. Medications and IVs Current Medications Medications (Trade) Dose Ordered Sig/Saad Route Start Time Stop Time Status Last Admin (NS Flush) 2 ml BID IV FLUSH 04/01/17 21:00 04/03/17 09:00 (NS Flush) 2 ml UNSCH PRN IV FLUSH 04/01/17 15:30 (NovoLOG SUPPLEMENTAL SCALE) 1 ACHS SQ 04/01/17 17:00 (D50w (Vial) Inj) 50 ml UNSCH PRN IV PUSH 04/01/17 15:30 (Glucagon Inj) 1 mg UNSCH PRN OTHER 04/01/17 15:30 (Romazicon Inj) 0.2 mg Q1M PRN IV PUSH 04/01/17 15:30 (Ativan) 1 mg Q4H PRN PO 04/01/17 15:30 04/03/17 09:11 (Ativan Inj) 1 mg Q4H PRN IV PUSH 04/01/17 15:30 (Ativan) 2 mg Q2H PRN PO 04/01/17 15:30 04/02/17 21:28 (Ativan Inj) 2 mg Q2H PRN IV PUSH 04/01/17 15:30 (Ativan Inj) 2 mg Q1H PRN IV PUSH 04/01/17 15:30 (Ativan Inj) 2 mg Q15M PRN IV PUSH 04/01/17 15:30 (Librium) 10 mg TID PO 04/02/17 09:00 04/03/17 09:11 Sodium Chloride 1,000 ml @ 70 mls/hr [id number] IV 04/02/17 12:30 04/03/17 00:29 (Aspirin) 325 mg DAILY PO 04/02/17 12:30 04/03/17 09:12 (Lipitor) 10 mg HS PO 04/02/17 21:00 04/02/17 21:27 (Trandate Inj) 5 mg Q2H PRN IV PUSH 04/02/17 13:30 (Vasotec Inj) 1.25 mg Q6H PRN IV PUSH 04/02/17 14:00 (Prinivil) 20 mg DAILY PO 04/03/17 14:30 (Coreg) 6.25 mg Q12HR PO 04/03/17 14:30 A/P Assessment and Plan Acute lacunar infarct Likely secondary to accelerated hypertension. - blood pressure control. - Start aspirin. Continue statin. - PT/ OT/ ST. - Neuro checks. - Consult neurology, stroke navigator, rehab medicine. - OOB w/ assist. - echo pending. Accelerated hypertension/ Vtach Blood pressure still elevated. He had a 19 beat run of vtach 04/03. - lisinopril 20 mg daily and Coreg 6.25 mg BID started. - telemetry. Chronic alcoholism. 6 pack per day history. - CIWA protocol. Start Librium taper. Indirect hyperbilirubinemia Secondary to Gilbert syndrome. - monitor as needed. Troponin elevation Peaked at 0.14. Patient without chest pain. EKG without signs of ischemia. Likely demand ischemia s/t CVA. - telemetry. - continue ASA. PPx: Heparin Discharge Planning Will likely need placement Giovanny Lopez DO Apr 03, 2017 14:44
[2017-04-03] MEDS: LISINOPRIL 20 MG TAB PO SCH (15:02)
[2017-04-03] MEDS: CARVEDILOL 6.25 MG TAB PO SCH ×2 (15:02→20:39)
[2017-04-03 16:00] VITALS: BP 215/88; PULSE 74; RESP 20; TEMP 97.7; O2SAT 95
--- NOTE | 2017-04-03 17:55 | ECHRPT ---
Indication: cva/tia CONCLUSIONS The left ventricular systolic function is normal with an estimated ejection fraction in the range of 55-60%. Normal left ventricular size. Mild concentric left ventricular hypertrophy. Eabey-zq-vchn mitral valve regurgitation. aortic valve schlerosis There is mild tricuspid valve regurgitation. The estimated pulmonary arterial pressure is 29.9 mmHg. BP: / HR: Rhythm: MEASUREMENTS (Male / Female) Normal Values Technical Quality:Good 2D ECHO LV Diastolic Diameter PLAX 5.0 cm 4.2 - 5.9 / 3.9 - 5.3 cm LV Systolic Diameter PLAX 3.6 cm IVS Diastolic Thickness 1.6 cm 0.6 - 1.0 / 0.6 - 0.9 cm LVPW Diastolic Thickness 1.4 cm 0.6 - 1.0 / 0.6 - 0.9 cm LV Relative Wall Thickness 0.6 RV Internal Dim ED PLAX 3.3 cm M-MODE Aortic Root Diameter MM 3.5 cm LA Systolic Diameter MM 4.2 cm LA Ao Ratio MM 1.2 AV Cusp Separation MM 2.2 cm DOPPLER Mitral E Point Velocity 41.0 cm/s Mitral A Point Velocity 71.6 cm/s Mitral E to A Ratio 0.6 LV E' Lateral Velocity 13.0 cm/s Mitral E to LV E' Lateral Ratio 3.2 LV E' Septal Velocity 6.8 cm/s Mitral E to LV E' Septal Ratio 6.0 TR Peak Velocity 223.0 cm/s TR Peak Gradient 19.9 mmHg Right Atrial Pressure 10.0 mmHg Pulmonary Artery Systolic Pressu 29.9 mmHg Right Ventricular Systolic Press 29.9 mmHg FINDINGS LEFT VENTRICLE The left ventricular systolic function is normal with an estimated ejection fraction in the range of 55-60%. Normal left ventricular size. Mild concentric left ventricular hypertrophy. RIGHT VENTRICLE Normal right ventricular size and systolic function. LEFT ATRIUM The left atrial size is normal. RIGHT ATRIUM The right atrial size is normal. ATRIAL SEPTUM Normal atrial septal thickness without atrial level shunting by limited color doppler interrogation. AORTA The aortic root and proximal ascending aorta are normal in size on limited imaging. MITRAL VALVE [id number] mitral valve regurgitation. Structurally normal mitral valve. AORTIC VALVE Trileaflet aortic valve. No aortic valve stenosis or regurgitation. TRICUSPID VALVE There is mild tricuspid valve regurgitation. The estimated pulmonary arterial pressure is 29.9 mmHg. Structurally normal tricuspid valve. PULMONARY VALVE No pulmonary valve regurgitation or stenosis. VESSELS The inferior vena cava is normal in size. PERICARDIUM No pericardial effusion. Koko Nathan MD, FACC, [facility] [place] (Electronically Signed) Final Date:03 April 2017 17:54
[2017-04-03] MEDS: LORazepam 2 MG TAB PO PRN (19:23)
[2017-04-03 20:00] VITALS: BP 190/94; PULSE 102; PULSE 77; RESP 20; TEMP 97.6; O2SAT 94
[2017-04-03] MEDS: ATORVASTATIN 10 MG TAB PO SCH (20:39)
[2017-04-04] VITALS: BP 178/92; PULSE 68; RESP 20; TEMP 98.1; O2SAT 95
[2017-04-04] MEDS: LORazepam 1 MG TAB PO PRN (00:23)
[2017-04-04 04:00] VITALS: BP 177/92; PULSE 66; RESP 21; TEMP 97.8; O2SAT 98
[2017-04-04] MEDS: SODIUM CHLOR 0.9% 1000 ML INJ 1,000 ML IV SCH (07:24)
[2017-04-04 08:00] VITALS: BP 190/94; PULSE 75; PULSE 83; RESP 20; TEMP 97.7; O2SAT 96
--- NOTE | 2017-04-04 08:23 | HM ---
Date Performed: 04/01/2017 Time Performed: 20:25:00 HOOKUP DATE: 04/01/17 08:25:00 PM Fri ANALYSIS START TIME: 04/01/2017 8:30:00 PM ANALYSIS END TIME: 04/02/2017 8:29:00 PM PATIENT AGE: 72 PATIENT HEIGHT: 67 PATIENT WEIGHT: 176 DRUG LIST: ROOM # [id number] PATIENT DIAGNOSIS: NEURO TEST NARRATIVE: The patient's average heart rate was 72 BPM. Heart rates greater than 120 B PM were noted < 1% of the time. Heart rates less than 50 BPM were noted 4% of the time. No pause s exceeding 2.0 seconds were noted. 735 ventricular ectopics, which represented 1% of the total b eat count, were noted. The highest ventricular ectopic frequency occurred from 07:00 PM to 08:00 PM Sat. During this time 90 VE(s) occurred. Ventricular ectopics were observed as 731 isolated beat(s) and as 2 couplet(s). No runs were noted. 12 supraventricular ectopics, which represented < 1% o f the total beat count, were noted. The highest supraventricular ectopic frequency occurred from 06: 00 AM to 07:00 AM Sat. During this time 4 SVE(s) occurred. No episodes of ST depression (defined as -1.0 mm or more) were noted in channel 1. No episodes of ST depression (defined as -1.0 mm or mo re) were noted in channel 2. No episodes of ST depression (defined as -1.0 mm or more) were noted in channel 3. NO DIARY MAINTAINED TEST INTERPRETATION: Overall benign Holter monitor. The underlying rhythm is Sinus rhythm . Two runs of atrial tachycardia are recorded, only 3 and 4 beats in duration, likely of no clinical significance. No other arrhythmias are seen. Signed by : Binu Kaminski
[2017-04-04] MEDS: ASPIRIN 325 MG TAB PO SCH (08:39)
[2017-04-04] MEDS: CARVEDILOL 6.25 MG TAB PO SCH ×2 (08:39→21:24)
[2017-04-04] MEDS: SODIUM CHLORIDE 0.9% FLUSH 5 ML FLUSH IV FLUSH SCH ×2 (08:39→21:25)
[2017-04-04] MEDS: LISINOPRIL 20 MG TAB PO SCH (08:39)
[2017-04-04 12:00] VITALS: BP 135/73; PULSE 69; RESP 20; TEMP 97.7; O2SAT 95
--- NOTE | 2017-04-04 12:29 | HHI.PR ---
Subjective Remarks The patient was having diarrhea. He was still having difficulty speaking. He did tolerate breakfast. No other acute complaints. Discussed with nursing bedside. Objective Vitals Vital Signs Date Time Temp Pulse Resp B/P (MAP) Pulse Ox O2 Delivery O2 Flow Rate FiO2 04/04/17 08:34 Room Air 04/04/17 04:00 97.8 66 21 177/92 (120) 98 04/04/17 00:00 Room Air 04/04/17 00:00 98.1 68 20 178/92 (120) 95 04/03/17 20:00 Room Air 04/03/17 20:00 97.6 102 20 190/94 (126) 94 04/03/17 20:00 77 04/03/17 16:00 97.7 74 20 215/88 (130) 95 I/O 04/03/17 04/03/17 04/03/17 04/04/17 04/04/17 04/04/17 07:00 15:00 23:00 07:00 15:00 23:00 Intake Total 1737 ml 1477 ml Balance 1737 ml 1477 ml Intake Oral 440 ml 240 ml IV Total 1297 ml 1237 ml # Voids 4 1 4 4 # Bowel Movements 0 1 1 2 Result Diagram: 04/03/17 0655 04/03/17 0655 Imaging Last Impressions Head CT 04/01/17 1259 Signed Impressions: Service Date/Time: Saturday, April 01, 2017 13:13 - CONCLUSION: Bilateral hypodensities within the basal ganglia and internal capsule suspicious for infarcts. Definite new edema or hemorrhage seen. Wilfrido Hernandez MD Chest X-Ray 04/01/17 1259 Signed Impressions: Service Date/Time: Saturday, April 01, 2017 13:58 - CONCLUSION: Normal examination. Wilfrido Hernandez MD Head Magnetic Resonance Angiography 04/01/17 0000 Signed Impressions: Service Date/Time: Saturday, April 01, 2017 16:48 - CONCLUSION: Normal examination without evidence of aneurysm or obvious stenosis. Wilfrido Hernandez MD Carotid Artery Ultrasound 04/01/17 0000 Signed Impressions: Service Date/Time: Saturday, April 01, 2017 15:43 - CONCLUSION: 1. Partially calcified atheromatous plaque generating approximately 50%% stenoses of the ICAs bilaterally. 2. Antegrade flow involving both vertebral arteries. Morgan Liriaon Jr., MD Brain MRI 04/01/17 0000 Signed Impressions: Service Date/Time: Saturday, April 01, 2017 16:48 - CONCLUSION: 1.3 x 0.8 cm lacunar infarct between the internal capsule and the thalamus on the left. Otherwise mild diffuse atrophy. Wilfrido Hernandez MD Objective Remarks GENERAL: Resting comfortably. SKIN: No rashes, ecchymoses or lesions. Cool and dry. HEAD: Atraumatic. Normocephalic. No temporal or scalp tenderness. EYES: Pupils equal round and reactive. Extraocular motions intact. No scleral icterus. No injection or drainage. ENT: Nose without bleeding, purulent drainage or septal hematoma. Throat without erythema, tonsillar hypertrophy or exudate. Uvula midline. Airway patent. NECK: Trachea midline. No JVD or lymphadenopathy. Supple, nontender, no meningeal signs. CARDIOVASCULAR: Regular rate and rhythm without murmurs, gallops, or rubs. RESPIRATORY: Clear to auscultation. Breath sounds equal bilaterally. No wheezes , rales, or rhonchi. GASTROINTESTINAL: Abdomen soft, non-tender, nondistended. No hepato-splenomegaly , or palpable masses. No guarding. MUSCULOSKELETAL: Extremities without clubbing, cyanosis, or edema. No joint tenderness, effusion, or edema noted. NEUROLOGICAL: Awake and alert. Cranial nerves II through XII intact. Patient does have aphasia. Five out of 5 muscle strength in all muscle groups. Improved etbohv-[id number] test. PSYCH: Calm. Medications and IVs Current Medications Medications (Trade) Dose Ordered Sig/Saad Route Start Time Stop Time Status Last Admin (NS Flush) 2 ml BID IV FLUSH 04/01/17 21:00 04/03/17 09:00 (NS Flush) 2 ml UNSCH PRN IV FLUSH 04/01/17 15:30 (Romazicon Inj) 0.2 mg Q1M PRN IV PUSH 04/01/17 15:30 (Ativan) 1 mg Q4H PRN PO 04/01/17 15:30 04/04/17 00:23 (Ativan Inj) 1 mg Q4H PRN IV PUSH 04/01/17 15:30 (Ativan) 2 mg Q2H PRN PO 04/01/17 15:30 04/03/17 19:23 (Ativan Inj) 2 mg Q2H PRN IV PUSH 04/01/17 15:30 (Ativan Inj) 2 mg Q1H PRN IV PUSH 04/01/17 15:30 (Ativan Inj) 2 mg Q15M PRN IV PUSH 04/01/17 15:30 (Librium) 10 mg TID PO 04/02/17 09:00 04/04/17 08:39 (Aspirin) 325 mg DAILY PO 04/02/17 12:30 04/04/17 08:39 (Lipitor) 10 mg HS PO 04/02/17 21:00 04/03/17 20:39 (Trandate Inj) 5 mg Q2H PRN IV PUSH 04/02/17 13:30 (Vasotec Inj) 1.25 mg Q6H PRN IV PUSH 04/02/17 14:00 (Prinivil) 20 mg DAILY PO 04/03/17 14:30 04/04/17 08:39 (Coreg) 6.25 mg Q12HR PO 04/03/17 14:30 04/04/17 08:39 (Mycostatin Liq) 5 ml QID SWISH-SWAL 04/04/17 12:30 UNV A/P Assessment and Plan Acute lacunar infarct Likely secondary to accelerated hypertension. Echo with normal EF. - blood pressure control. - Start aspirin. Continue statin. - PT/ OT/ ST. - Neuro checks. - Consult neurology, stroke navigator, rehab medicine. - OOB w/ assist. Accelerated hypertension/ Vtach Blood pressure still elevated. He had a 19 beat run of vtach 04/03. - lisinopril 40 mg daily and Coreg 6.25 mg BID started. Adjust as needed. - telemetry. Chronic alcoholism. 6 pack per day history. - CIWA protocol. D/c Librium. Indirect hyperbilirubinemia Secondary to Gilbert syndrome. - monitor as needed. Troponin elevation Peaked at 0.14. Patient without chest pain. EKG without signs of ischemia. Likely demand ischemia s/t CVA. - telemetry. - continue ASA. PPx: Heparin Discharge Planning Will likely need placement Giovanny Lopez DO Apr 04, 2017 12:29
[2017-04-04] MEDS ORDERED: LISINOPRIL 20 MG TAB PO ONE (13:00)
[2017-04-04] MEDS: NYSTATIN SUSP 500,000 U/5 ML CUP SWISH-SWAL SCH ×3 (13:00→21:25)
[2017-04-04] MEDS: metroNIDAZOLE 500 MG TAB PO SCH ×2 (15:35→21:25)
--- NOTE | 2017-04-04 15:48 | HHI.PR ---
Review/Management Diagnosis left thalamic cva--exam stable Plan continue aspirin and statin continue to monitor cardiac tele--r/o afib Diagnosis/Plan: Subjective Subjective Comments No acute events reported No new neurologic sx Active Medications Current Medications Medications (Trade) Dose Ordered Sig/Saad Route Start Time Stop Time Status Last Admin (NS Flush) 2 ml BID IV FLUSH 04/01/17 21:00 04/03/17 09:00 (NS Flush) 2 ml UNSCH PRN IV FLUSH 04/01/17 15:30 (Romazicon Inj) 0.2 mg Q1M PRN IV PUSH 04/01/17 15:30 (Aspirin) 325 mg DAILY PO 04/02/17 12:30 04/04/17 08:39 (Lipitor) 10 mg HS PO 04/02/17 21:00 04/03/17 20:39 (Trandate Inj) 5 mg Q2H PRN IV PUSH 04/02/17 13:30 (Vasotec Inj) 1.25 mg Q6H PRN IV PUSH 04/02/17 14:00 (Coreg) 6.25 mg Q12HR PO 04/03/17 14:30 04/04/17 08:39 (Mycostatin Liq) 5 ml QID SWISH-SWAL 04/04/17 13:00 04/04/17 13:00 (Prinivil) 40 mg DAILY PO 04/05/17 09:00 (Flagyl) 500 mg Q8HR PO 04/04/17 15:15 04/04/17 15:35 Allergies Allergies Coded Allergies No Known Allergies (Pycntotvhn10/24/17) Exam I&O / VS Vital Signs Date Time Temp Pulse Resp B/P (MAP) Pulse Ox O2 Delivery O2 Flow Rate FiO2 04/04/17 12:00 97.7 69 20 135/73 (93) 95 04/04/17 08:34 Room Air 04/04/17 08:00 97.7 83 20 190/94 (126) 96 04/04/17 04:00 97.8 66 21 177/92 (120) 98 04/04/17 00:00 Room Air 04/04/17 00:00 98.1 68 20 178/92 (120) 95 04/03/17 20:00 Room Air 04/03/17 20:00 97.6 102 20 190/94 (126) 94 04/03/17 20:00 77 04/03/17 16:00 97.7 74 20 215/88 (130) 95 Exam Comments lethargic Has expressive aphasia with intact comprehension CN intact MOTOR 4+/5 RUE and RLE. 5/5 LUE and LLE Objective Micro and Labs Laboratory Tests Test 04/04/17 15:00 Diagnostic Tests echocardiogram is reviewed--no cardioembolic source seen Lefty Robles. PhD Apr 04, 2017 15:48
[2017-04-04 16:00] VITALS: BP 178/85; PULSE 53; RESP 20; TEMP 98; O2SAT 95
[2017-04-04 16:51] LABS: C. DIFF EPI 027 PRESUMPTIVE NEGATIVE (NEGATIVE)
[2017-04-04 20:00] VITALS: BP 147/79; PULSE 70; PULSE 74; RESP 20; TEMP 99; O2SAT 97
[2017-04-04] MEDS: ATORVASTATIN 10 MG TAB PO SCH (21:25)
[2017-04-05] VITALS: BP 152/80; PULSE 75; RESP 18; TEMP 98.2; O2SAT 95
[2017-04-05 05:00] VITALS: BP 193/93; PULSE 69; RESP 18; TEMP 98; O2SAT 95
[2017-04-05] MEDS: metroNIDAZOLE 500 MG TAB PO SCH (05:07)
[2017-04-05 08:00] VITALS: BP 184/90; PULSE 69; RESP 20; TEMP 98.3; O2SAT 95
[2017-04-05 09:00] LABS: BICARBONATE 23.8 MEQ/L (21.0-32.0); MAGNESIUM 2.2 MG/DL (1.5-2.5); POTASSIUM 3.8 MEQ/L (3.5-5.1)
[2017-04-05] MEDS ORDERED: LISINOPRIL 20 MG TAB PO SCH (09:00)
[2017-04-05] MEDS: SODIUM CHLORIDE 0.9% FLUSH 5 ML FLUSH IV FLUSH SCH (09:00)
[2017-04-05] MEDS: CARVEDILOL 6.25 MG TAB PO SCH (09:13)
[2017-04-05] MEDS: ASPIRIN 325 MG TAB PO SCH (09:13)
[2017-04-05] MEDS: NYSTATIN SUSP 500,000 U/5 ML CUP SWISH-SWAL SCH ×2 (09:14→13:00)
[2017-04-05 12:00] VITALS: BP 112/57; PULSE 68; RESP 20; TEMP 97; O2SAT 95
[2017-04-05] MEDS ORDERED: LIPI10TA PO (14:45)
[2017-04-05] MEDS ORDERED: ASA325 PO (14:45)
[2017-04-05] MEDS ORDERED: CARV6.25 PO (14:45)
[2017-04-05] MEDS ORDERED: LISI-515 PO (14:45)
--- NOTE | 2017-04-05 14:46 | HHI.DCPOC ---
Discharge Care Plan Diagnosis: (1) Diarrhea (2) CVA (cerebral vascular accident) (3) Uncontrolled hypertension Goals to Promote Your Health * To prevent worsening of your condition and complications * To maintain your health at the optimal level Directions to Meet Your Goals Take your medications as prescribed Follow your dietary instruction Follow activity as directed Keep your appointments as scheduled Take your immunizations and boosters as scheduled If your symptoms worsen call your PCP, if no PCP go to Urgent Care Center or Emergency Room Smoking is Dangerous to Your Health. Avoid second hand smoke Call the 24-hour hour crisis hotline for domestic abuse at Tj Lynn MD Apr 05, 2017 14:46
--- NOTE | 2017-04-05 14:51 | HHI.DS ---
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 Daughter is not at bedside at the time of examination. Patient denies feeling any different. Says he feels like he is talking without any difficulty, says he feels like himself. Denies any chest pain, shortness of breath, nausea, vomiting. He does report drinking about 6 beers per day. Denies any history of withdrawal. CBC/BMP: 04/03/17 0655 04/05/17 0727 Significant Findings Laboratory Tests Test 04/03/17 06:55 04/04/17 15:00 04/05/17 07:27 Red Blood Count 4.30 MIL/MM3 (4.50-5.90) Calcium Level 8.4 MG/DL (8.5-10.1) Estimat Glomerular Filtration Rate 81 ML/MIN (>89) 58 ML/MIN (>89) Blood Urea Nitrogen 20 MG/DL (7-18) Random Glucose 124 MG/DL (74-106) Imaging Last Impressions Head CT 04/01/17 1259 Signed Impressions: Service Date/Time: Saturday, April 01, 2017 13:13 - CONCLUSION: Bilateral hypodensities within the basal ganglia and internal capsule suspicious for infarcts. Definite new edema or hemorrhage seen. Wilfrido Hernandez MD Chest X-Ray 04/01/17 1259 Signed Impressions: Service Date/Time: Saturday, April 01, 2017 13:58 - CONCLUSION: Normal examination. Wilfrido Hernandez MD Head Magnetic Resonance Angiography 04/01/17 0000 Signed Impressions: Service Date/Time: Saturday, April 01, 2017 16:48 - CONCLUSION: Normal examination without evidence of aneurysm or obvious stenosis. Wilfrido Hernandez MD Carotid Artery Ultrasound 04/01/17 0000 Signed Impressions: Service Date/Time: Saturday, April 01, 2017 15:43 - CONCLUSION: 1. Partially calcified atheromatous plaque generating approximately 50%% stenoses of the ICAs bilaterally. 2. Antegrade flow involving both vertebral arteries. Morgan Liriano Jr., MD Brain MRI 04/01/17 0000 Signed Impressions: Service Date/Time: Saturday, April 01, 2017 16:48 - CONCLUSION: 1.3 x 0.8 cm lacunar infarct between the internal capsule and the thalamus on the left. Otherwise mild diffuse atrophy. Wilfrido Hernandez MD PE at Discharge GENERAL: Resting comfortably. SKIN: No rashes, ecchymoses or lesions. Cool and dry. HEAD: Atraumatic. Normocephalic. No temporal or scalp tenderness. EYES: Pupils equal round and reactive. Extraocular motions intact. No scleral icterus. No injection or drainage. ENT: Nose without bleeding, purulent drainage or septal hematoma. Throat without erythema, tonsillar hypertrophy or exudate. Uvula midline. Airway patent. NECK: Trachea midline. No JVD or lymphadenopathy. Supple, nontender, no meningeal signs. CARDIOVASCULAR: Regular rate and rhythm without murmurs, gallops, or rubs. RESPIRATORY: Clear to auscultation. Breath sounds equal bilaterally. No wheezes , rales, or rhonchi. GASTROINTESTINAL: Abdomen soft, non-tender, nondistended. No hepato-splenomegaly , or palpable masses. No guarding. MUSCULOSKELETAL: Extremities without clubbing, cyanosis, or edema. No joint tenderness, effusion, or edema noted. NEUROLOGICAL: Awake and alert. Cranial nerves II through XII intact. Patient does have aphasia. Five out of 5 muscle strength in all muscle groups. Improved [id number] test. PSYCH: Calm. Pt update on day of discharge Patient denies cp/sob. Denies headache. Pt Condition on Discharge: Stable Discharge Disposition: Rehab Inpatient Discharge Time: > 30 minutes Discharge Instructions DIET: Follow Instructions for: Diabetic Diet Speech Therapy-Diet Recommends: Pureed Activities you can perform: See Additionl Instruction Other Activity Instructions: as per PT instructions Follow up Referrals: Neurology - 2 Weeks PCP Follow-up - 2 Weeks New Medications: Aspirin (Px Aspirin) 325 Mg Tab 325 MG PO DAILY for Blood Clot Prevention, #31 TAB Atorvastatin (Lipitor) 10 Mg Tab 10 MG PO HS for Cholesterol Management, #31 TAB Carvedilol (Coreg) 6.25 Mg Tab 6.25 MG PO Q12HR for Blood Pressure Management, #62 TAB Lisinopril (Lisinopril) 20 Mg Tab 40 MG PO DAILY for Blood Pressure Management, #31 TAB Continued Medications: Multiple Vitamin (Multiple Vitamin) 1 Tab 1 TAB PO DAILY for Nutritional Supplement, TAB 0 Refills Tj Lynn MD Apr 05, 2017 14:51
[2017-04-05 16:03] VITALS: PULSE 69
== END 2017-04-05 16:37 | disposition home or self-care (01) | DRG 65 ==
LOC: NEPE 12:44 → NEDA 15:52 → N04B 18:40
PROVIDERS: ADMIT Hospitalist; ATTEND Hospitalist
DX: I63.9 Cerebral infarction, unspecified (principal); I24.8 Other forms of acute ischemic heart disease; I47.2 Ventricular tachycardia; R47.01 Aphasia; R17 Unspecified jaundice; I10 Essential (primary) hypertension; E80.4 Gilbert syndrome; F10.20 Alcohol dependence, uncomplicated; Z79.899 Other long term (current) drug therapy; Z87.891 Personal history of nicotine dependence; R19.7 Diarrhea, unspecified
CPT/HCPCS: 70450; 70544; 70551; 71010; 80048; 80053; 80061; 80307; 81001; 82247; 82248; 82550; 82948; 83036; 83735; 84443; 84484; 85025; 85027; 85610; 85730; 87493; 93005; 93225; 93226; 93306; 93880; 96374; J0360; J7030; Q9967